=== PATIENT | female | born 1945 | race Two or more races ===

== ENCOUNTER 2018-11-04 08:20 | Day surgery (SDC) | payer MEDICARE, BC ==
[~2018-11-04] VITALS: Ht 152.4 cm; Wt 72.6 kg
[2018-11-04] VITALS (9 sets, daily range): BP systolic 121–151; BP diastolic 66–83
--- NOTE | 2018-11-04 07:17 | Anethesia Preoperative Eval ---
Anesthesia Pre-op PMH/ROS General Date of Evaluation: Nov 04, 2018 Time of Evaluation: 07:16 Anesthesiologist: vilma ASA Score: ASA 3 Mallampati Score Class I : Soft palate, uvula, fauces, pillars visible Class II: Soft palate, uvula, fauces visible Class III: Soft palate, base of uvula visible Class IV: Only hard plate visible Mallampati Classification: Class II Surgeon: debra Diagnosis: abdominal pain, gerd Surgical Procedure: egd/colonoscopy Anesthesia History: none Social History: smoking - nonsmoker Family History: no anesthesia problems Allergies: Coded Allergies: No Known Allergies (Unverified , 11/03/18) Medications: see eMAR Patient NPO?: Yes Past Medical History Cardiovascular: Reports: HTN, other - hyperlipidemia HEENT: Reports: other - decreased visual acuity Musculoskeletal/Integumentary: Reports: other - back pain Other: obesity Anesthesia Pre-op Phys. Exam Physician Exam Last Vital Signs Date Time Temp Pulse Resp B/P (MAP) Pulse Ox O2 Delivery O2 Flow Rate FiO2 11/04/18 09:00 Room Air Constitutional: NAD Neurologic: CN 2-12 intact Cardiovascular: RRR Respiratory: CTA Gastrointestinal: S/NT/ND Airway Exam Mallampati Score: Class II MO: limited Neck: short TMD: 2fb ROM: limited Anesthesia Pre-op A/P Risk Assessment & Plan Assessment: asa3 Plan: mac Status Change Before Surgery: Bridget Feldman MD Nov 04, 2018 07:17
[~2018-11-04 08:20] MED LIST: Atropine Inj 1mg/10ml Syr IV PRN; DiphenhydrAMINE 50mg/ml Inj IVP PRN; LR 1000ml 1,000 ML IVLG SCH; Midazolam 2mg/2ml Inj IVP PRN; fentaNYL 100 mcg/2 mL IV PRN
--- NOTE | 2018-11-04 08:46 | Short Stay Surgery H&P ---
History of Present Illness History of Present Illness Chief Complaint Abdominal pains and screening colonoscopy HPI Sanna Maloney is a 73 year old female who was admitted on for Gerds/Abdomonal Pain Patient History Allergies: Coded Allergies: No Known Allergies (Unverified , 11/03/18) PAST MEDICAL HISTORY: (1) Hyperlipidemia (2) Hypertension Review of Systems Cardiovascular: Reports: no symptoms Respiratory: Reports: no symptoms Skeletal: Reports: no symptoms Gastrointestinal: Reports: gastro esophageal reflux disease Genitourinary: Reports: no symptoms Neurologic: Reports: no symptoms Endocrine: Reports: no symptoms Physical Exam Skin: normal HENT: normal Heart: normal Lungs: normal Abdomen: normal Extremities: normal Genitourinary: normal Plan Plan of Care Upper and lower GI endoscopy with biopsy Preop Interventions None. Summary of Findings See the reports. Attestation Are the patient's medical conditions optimized for surgery? Attestation Response: yes Fernando Maloney MD Nov 04, 2018 08:46
--- NOTE | 2018-11-04 08:47 | Pre-Procedure Note/Attestation ---
Pre-Procedure Note/Attestation Complete Prior to Procedure Planned Procedure: left Procedure Narrative: Endoscopic examination of the upper and lower GI tract. Indications for Procedure Pre-Operative Diagnosis: R/O Gastritis//colon polyps Attestation I attest that I discussed the nature of the procedure; its benefits; risks and complications; and alternatives (and the risks and benefits of such alternatives ), prior to the procedure, with the patient (or the patient's legal employee's representative). I attest that, if there was a reasonable possibility of needing a blood transfusion, the patient (or the patient's legal employee's representative) was given the [facility] standardized written summary, pursuant to the Ramiro [place] Blood Safety Act ([place] Health and Safety Code # 1645, as amended). I attest that I re-evaluated the patient just prior to the surgery and that there has been no change in the patient's H&P, except as documented below: Fernando Maloney MD Nov 04, 2018 08:47
[2018-11-04] MEDS ORDERED: ATORVASTATIN CA20 MG ORAL (08:59)
[2018-11-04] MEDS ORDERED: LISINOPRIL10 MG ORAL (08:59)
[2018-11-04] MEDS ORDERED: Lidocaine 1% MPF 10mg/ml 5ml ONE (09:00)
[2018-11-04] MEDS ORDERED: LR 1000ml ONE (09:00)
[2018-11-04] MEDS ORDERED: Propofol 200mg/20ml IV ONE (09:00)
--- NOTE | 2018-11-04 09:41 | Endoscopy Procedure Note ---
Endoscopy Procedure Note General Indication for Procedure: Abdominal pains/screening colonoscopy Procedures Performed: EGD - Completely normal upper GI. endoscopy, biopsy was done per randome from gastric body to R/O HBP infection., colonoscopy - Minimal internal hemorrhoids with highly redundant left colon otherwise completely normal total colonoscopy Specimen: yes Pt Tolerated Procedure Well: Yes Estimated Blood Loss: none Anesthesia Anesthesiologist: Dr. Miller Anesthesia: moderate sedation Medications Medication Given: see anesthesia record Inserted Devices Implant(s) used?: No Quality Quality of Bowel Preparation: Excellent Did scope reach the cecum?: Yes Was there any complications?: No GI Core Measures 50 yrs or older w/o bx or poly: Yes 10yrs. F/U not recommended: Yes If not recommended, why?: 18 years or older w/prev. colo: No <3yrs. since last colonoscopy: No Med reason:<3 yrs.: System Reason:<3 yrs.: Last colonoscopy >= to 3yrs: Yes Fernando Maloney MD Nov 04, 2018 09:41
--- NOTE | 2018-11-04 09:42 | Discharge Instructions ---
Discharge Instructions Discharge Instructions Follow up with: Visit the docotor after two weeks in the office. For Congestive Heart Failure Reminder Report to your physician any weight gain of 5 pounds or more in one week. Fernando Maloney MD Nov 04, 2018 09:42
--- NOTE | 2018-11-04 09:56 | Immediate Post-Op Evaluation ---
Immediate Post-Op Evalulation Immediate Post-Op Evalulation Procedure: egd/colonoscopy/bx Date of Evaluation: Nov 04, 2018 Time of Evaluation: 09:56 IV Fluids: 350ml lr Blood Products: none Estimated Blood Loss: negligible Blood Pressure Systolic: 121 Blood Pressure Diastolic: 82 Pulse Rate: 90 Respiratory Rate: 18 O2 Sat by Pulse Oximetry: 100 Temperature (Fahrenheit): 98.6 Pain Score (1-10): 0 Nausea: No Vomiting: No Complications none Patient Status: awake, reacts, patent Hydration Status: adequate Drug: Bridget Wright MD Nov 04, 2018 09:56
--- NOTE | 2018-11-04 13:08 | 48 Hour Post Anesthesia Eval ---
Post Anesthesia Evaluation Procedure: egd/colonoscopy/bx Date of Evaluation: Nov 04, 2018 Time of Evaluation: 09:58 Blood Pressure Systolic: 123 0: 76 Pulse Rate: 76 Respiratory Rate: 18 Temperature (Fahrenheit): 98.6 O2 Sat by Pulse Oximetry: 100 Airway: patent Nausea: No Vomiting: No Pain Intensity: 0 Hydration Status: adequate Cardiopulmonary Status: stable Mental Status/LOC: patient returned to baseline Post-Anesthesia Complications: none Follow-up care needed: N/A Bridget Miller MD Nov 04, 2018 13:08
--- NOTE | 2018-11-04 15:45 | Operative Note - Dictated ---
DATE OF OPERATION: 11/04/2018 SURGEON: Fernando Maloney M.D. PROCEDURE: Esophagogastroduodenoscopy with biopsy. PREOPERATIVE DIAGNOSIS: Abdominal pain. POSTOPERATIVE DIAGNOSIS: Totally normal upper GI endoscopy. Biopsy was taken per random from gastric body to rule out Helicobacter infection. MEDICATION USED: Per Dr. Miller, anesthesiologist. INSTRUMENT: GIF Olympus upper GI video endoscope. DESCRIPTION OF PROCEDURE: The patient after arriving an endoscopy unit, was told about risks and benefits of the procedure, which she accepted and signed informed consent. She was then put on the left lateral decubitus position. After adequate IV sedation, the scope was gently passed through the cricopharyngeal area, was lodged into the upper esophagus and gradually advanced towards gastroesophageal junction. The entire length of the esophagus looked normal. No evidence of varices, inflammatory process, ulceration, stricture, etc. were found. GE junction looked normal and there was no evidence of Barksdale's or hiatal hernia. At this time, the scope was advanced into the stomach. Gastric cavity was distended with insufflation of air. The areas of the fundus and the body and the antrum were examined in oak tanner fashion, which revealed no particular abnormalities. There was no ulcers, inflammatory process, polyps, tumors, etc. At this point, one random biopsy from gastric body obtained and subsequently scope was passed through the antrum. Pylorus, first and second portion of duodenum were found to be completely normal. Finally, the scope was pulled out and procedure was terminated. The patient tolerated the procedure well. Fernando Maloney M.D. DR: YAEL JOB#: [id number] CC:
--- NOTE | 2018-11-04 16:30 | Operative Note - Dictated ---
DATE OF OPERATION: 11/04/2018 SURGEON: Fernando Maloney M.D. PROCEDURE: Total colonoscopy. PREOPERATIVE DIAGNOSIS: Screening colonoscopy. POSTOPERATIVE DIAGNOSIS: Completely normal total colonoscopy with small nonsignificant internal hemorrhoid. MEDICATION USED: Per Dr. Hernandez, anesthesiologist. INSTRUMENT: GIF Olympus video colonoscope. DESCRIPTION OF PROCEDURE: The patient after arriving at endoscopy unit, was told about risks and benefits of the procedure, which she accepted and signed informed consent. She was then put on the left lateral decubitus position. After adequate IV sedation, the examination of anal area before entering the scope revealed evidence of hemorrhoidal tag, which was not significant. At this point, the scope was advanced into the rectum and retroflexion maneuver was applied, which revealed evidence of very minimal internal hemorrhoid, which was not friable and none significant. At this time, the rest of the rectum looked completely normal. At this time, the scope was gradually passed through highly redundant left colon reaching towards the splenic flexure, transverse colon, right colon all the way to the base of the cecum. All these areas remained to be completely normal without any evidence of polyps, tumors, inflammatory process, stricture, ulcers etc. The colon cleanup was adequate and acceptable. At this time within 7 minutes, the scope was gradually pulled out and no other pathology was found. The patient tolerated the procedure well and left the endoscopy room in a good condition. Fernando Maloney M.D. DR: /SALO JOB#: [id number] CC:
== END 2018-11-04 10:55 | disposition home or self-care (01) ==
LOC: GAS 08:20
DX: Z12.11 Encounter for screening for malignant neoplasm of colon (principal); K29.50 Unspecified chronic gastritis without bleeding; K64.8 Other hemorrhoids; K21.9 Gastro-esophageal reflux disease without esophagitis; E78.5 Hyperlipidemia, unspecified; I10 Essential (primary) hypertension; R10.9 Unspecified abdominal pain; E66.9 Obesity, unspecified; Z68.31 Body mass index [BMI] 31.0-31.9, adult
CPT/HCPCS: 43239; G0121; J2704; 94003; 94150